=== PATIENT | male | born 1945 | race Caucasian/White ===

== ENCOUNTER 2022-12-04 08:25 | Emergency (ER) | payer BC ==
[~2022-12-04] VITALS: Ht 172.7 cm; Wt 90.7 kg
--- NOTE | 2022-12-04 08:30 | NUR ---
Patient is a 77 year old male from [facility] BIB RA for ground level fall. Patient presents with a small bump on forehead. Patient has no complaints of pain at this time. Denies chest pain and shortness of breath. Safety precautions in place. Will continue to monitor patient.
--- NOTE | 2022-12-04 08:41 | NUR ---
Patient taken for CT scan.
--- NOTE | 2022-12-04 10:00 | NUR ---
Per of the patient, she states she is able to take care of her and take him back to assisted living. Per , she often takes him around.
--- NOTE | 2022-12-04 10:19 | NUR ---
Patient discharged to home in stable condition. Written and verbal after care instructions given. Patient verbalizes understanding of instructions. Stressed follow up or return to ER for worsening s/s.
[2022-12-04 12:26] VITALS: BP 146/93
== END 2022-12-04 10:20 ==
LOC: ER 08:28
DX: S00.03XA Contusion of scalp, initial encounter (principal); W18.30XA Fall on same level, unspecified, initial encounter; Y92.092 Bedroom in other non-institutional residence as the place of occurrence of the external cause; E11.9 Type 2 diabetes mellitus without complications; U07.1 COVID-19; F03.90 Unspecified dementia, unspecified severity, without behavioral disturbance, psychotic disturbance, mood disturbance, and anxiety; I10 Essential (primary) hypertension; Z98.1 Arthrodesis status; M50.30 Other cervical disc degeneration, unspecified cervical region
CPT/HCPCS: 70450; 72125; 93005; A4663